=== PATIENT | female | born 1950 | race Caucasian/White ===

== ENCOUNTER 2021-03-02 13:30 | Outpatient (CLI) | payer OTHER, SELFPAY ==
--- NOTE | 2021-03-08 07:30 | WPDHOLTEREM ---
Holter/Event Monitor Holter/Event Monitor Date of procedure: 03/02/21 Holter/Event Procedure: 48 Hr Holter Monitor Indications: Syncope Conclusion: 1. 48 hour holter monitor on 03/02/21. 2. Predominant rhythm is sinus rhythm. HR range 52-121 bpm; average HR 75 bpm. 3. There are 33 premature supraventricular complexes and 4 supraventricular couplets. There are 4 episodes of atrial tachycardia, fastest at 169 bpm and longest is 4 beats. 4. There are 2 premature ventricular complexes. No ventricular tachycardia. 5. No sinoatrial or atrioventricular blocks. No significant pauses greater than 2 seconds. 6. No symptoms available for correlation.
== END 2021-03-02 13:31 | disposition home or self-care (01) ==
LOC: ANHCARD 13:32
PROVIDERS: PCP Family Medicine; Visit Provider Family Medicine
DX: R55 Syncope and collapse (principal)
CPT/HCPCS: 93225; 93226

== ENCOUNTER 2021-03-04 13:36 | Outpatient (CLI) | payer OTHER, SELFPAY ==
--- NOTE | ~2021-03-04 | US_ITS ---
EXAMINATION: US carotid duplex BI DATE: 03/04/2021 14:18 INDICATION: Syncope. TECHNIQUE: Grayscale, color Doppler, and pulsed Doppler images of the cervical carotid arteries were obtained. The degree of vessel stenosis is placed in one of the following categories: normal, <50%, 5 0-69%, >=70% but less than near-occlusion, near-occlusion, or total occlusion. Note that percent sten osis relative to normal distal artery lumen diameter is indirectly measured from velocity measurement s as described by Fernando, et al. Radiology 2003; 229:340-346. COMPARISON: None. FINDINGS: RIGHT: The right common carotid artery (CCA) peak systolic velocity (PSV) is 77 cm/s. The right internal car otid artery (ICA) PSV is 57 cm/s. The right ICA end-diastolic velocity (EDV) is 20 cm/s. The right IC A/CCA PSV ratio is 0.7. Grayscale and color Doppler images yield an estimate of <50% diameter reducti on from plaque in the ICA. There is antegrade flow in the right vertebral artery. LEFT: The left CCA PSV is 73 cm/s. The left ICA PSV is 95 cm/s. The left ICA EDV is 27 cm/s. The left ICA/C CA PSV ratio is 1.3. Grayscale and color Doppler images yield an estimate of <50% diameter reduction from plaque in the ICA. There is antegrade flow in the left vertebral artery. IMPRESSION: 1. <50% stenosis in the right internal carotid artery. 2. <50% stenosis in the left internal carotid artery. Reviewed, dictated and finalized at location A.
== END 2021-03-04 13:37 | disposition home or self-care (01) ==
PROVIDERS: PCP Family Medicine; Visit Provider Nurse Practitioner Family
DX: R55 Syncope and collapse (principal); I65.23 Occlusion and stenosis of bilateral carotid arteries
CPT/HCPCS: 93880

== ENCOUNTER 2021-04-04 14:15 | Outpatient (CLI) | payer OTHER, SELFPAY ==
--- NOTE | ~2021-04-04 | US_ITS ---
EXAMINATION: US aorta DATE: 04/04/2021 14:46 INDICATION: Hypertension, prior tobacco use TECHNIQUE: Grayscale, color Doppler, and pulsed Doppler images of the aorta and common iliac arteries were obtained. COMPARISON: None. FINDINGS: Maximum vascular dimensions are as follows: Proximal aorta: 2.8 cm Mid aorta: 2.1 cm Distal aorta: 1.7 cm Right common iliac artery: 1.5 cm Left common iliac artery: 1.6 cm There is no evidence of abdominal aortic aneurysm. IMPRESSION: 1. No sonographic evidence of abdominal aortic aneurysm. Reviewed, dictated and finalized at location A.
== END 2021-04-04 14:16 | disposition home or self-care (01) ==
PROVIDERS: PCP Family Medicine; Visit Provider Internal Medicine Cardiovascular Disease
DX: R09.89 Other specified symptoms and signs involving the circulatory and respiratory systems (principal)
CPT/HCPCS: 76775

== ENCOUNTER 2021-04-11 13:06 | Outpatient (CLI) | payer OTHER, SELFPAY ==
--- NOTE | ~2021-04-11 | XR_ITS ---
XR hip RT min 3V w AP pelvis DATE: 04/11/2021 13:34 INDICATION: Right chronic hip pain. No known injury. TECHNIQUE: AP pelvis. AP, lateral, crosstable lateral views of right hip COMPARISON: None FINDINGS: There is rotatory dextroscoliosis and multilevel degenerative disc disease of the lumbar sp ine. The pubic symphysis and sacroiliac joints are intact. No pelvic fracture or bone destruction is detected. There is asymmetric right hip joint space narrowing as well as spurring, consistent with right hip os teoarthritis. No fracture, dislocation or bone destruction of the right hip is detected. IMPRESSION: Asymmetric right hip osteoarthritis Rotatory dextroscoliosis and multilevel degenerative disc disease of the lumbar spine Reviewed, dictated and finalized at location A.
== END 2021-04-11 13:07 | disposition home or self-care (01) ==
PROVIDERS: PCP Family Medicine; Visit Provider Family Medicine
DX: M16.11 Unilateral primary osteoarthritis, right hip (principal)
CPT/HCPCS: 73502

== ENCOUNTER 2021-08-04 09:25 | Outpatient (CLI) | payer OTHER, SELFPAY ==
--- NOTE | ~2021-08-04 | XR_ITS ---
EXAMINATION: XR lg joint inject/asp w image DATE: 08/04/2021 10:18 INDICATION: Right hip arthritis. TECHNIQUE: A time-out was performed to verify the patient's name, date of , and procedure to b e performed. The procedure including the risks, benefits, and alternatives was discussed with the pat ient. Risks discussed included bleeding and infection. The patient understood the risks and agreed to proceed. The skin overlying the right hip joint was prepped and draped in usual sterile fashion. A nesthetic was administered with 1% lidocaine subcutaneously. A 22 G needle was advanced under fluoro scopic guidance into the joint. Injection of 1 mL of Omnipaque 240 confirmed intra-articular positio n of the needle. Subsequently, injectate consisting of 2 mL 0.5% bupivacaine and 2 mL 40 mg/mL Depo- Medrol was instilled. The needle was removed and the entry site was cleaned and dressed. There were no immediate complications. Fluoroscopy exposure time was 0.1 minutes. The total number of images wa s 1. FINDINGS: Real-time fluoroscopy demonstrates the needle in the right hip joint. Patient's pain prior to procedure:1/10. Patient's pain following the procedure: 0/10. IMPRESSION: 1. Fluoroscopy guided right hip joint injection of local anesthetic and steroid with decrease in the patient's presenting pain. Reviewed, dictated and finalized at location A. ERCIAL PEST CONTROL REPRESENTATIVE
== END 2021-08-04 09:26 | disposition home or self-care (01) ==
LOC: ANHIMG 09:30
PROVIDERS: PCP Family Medicine; Visit Provider Orthopaedic Surgery
DX: M16.11 Unilateral primary osteoarthritis, right hip (principal)
CPT/HCPCS: 20610; 77002; J1030; Q9966

== ENCOUNTER 2021-12-15 13:46 | Outpatient (CLI) | payer OTHER, SELFPAY ==
--- NOTE | 2021-12-15 14:58 | ECG_ITS ---
Measurements Intervals [place] Rate: 64 P: 57 KS: 182 QRS: -35 QRSD: 102 T: 32 QT: 417 QTc: 431 Interpretive Statements SINUS RHYTHM LEFT AXIS DEVIATION [QRS AXIS < -30] POSSIBLE RIGHT VENTRICULAR CONDUCTION DELAY [RSR (QR) IN V1/V2] NO PREVIOUS ECG AVAILABLE FOR COMPARISON Electronically Signed On 12-15-2021 20:40:13 CDT by Nava Mijares M.D.
[2021-12-15 15:42] LABS: Basophils Percent Auto 0.6 % (0.2-1.2); Eosinophils Absolute Auto 0.2 K/mm3 (0-0.3); Eosinophils Percent Auto 3.1 % (0-4.4); Hematocrit 42.5 % (37.0-47.0); Hemoglobin 14.4 g/dL (12.0-15.0); Immature Granulocyte Absolute 0.01 K/mm3 (0.00-0.031); Immature Granulocyte Percent A 0.2 % (0-0.5); Lymphocytes Absolute Auto 0.94 K/mm3 (0.9-3.2); Lymphocytes Percent Auto 19.2 % (18.3-44.2); Mean Corpuscular HGB Conc 33.9 g/dl (32-36); Mean Corpuscular Hemoglobin 33.3 pg (26-34); Mean Corpuscular Volume 98.4 fl (80-100); Mean Platelet Volume 8.8 fl (7.4-10.4); Monocytes Absolute Auto 0.6 K/mm3 (0.1-0.6); Monocytes Percent Auto 12.7 % (2.6-8.5); Neutrophils Absolute Auto 3.1 K/mm3 (1.3-6.7); Neutrophils Percent Auto 64.2 % (45.5-73.1); Platelet Count Result 220 k/mm3 (150-375); Red Blood Count 4.32 M/mm3 (4.2-5.4); Red Cell Distribution Width 13.2 % (11.5-14.5); White Blood Count 4.9 K/mm3 (4.5-10.0)
[2021-12-15 15:45] LABS: Appearance Urine Clear (Clear); Bilirubin Urine Negative (Negative); Color Urine Yellow (Yellow); Glucose Urine UA Negative (Negative); Ketones Urine Negative (Negative); Leukocyte Esterase Ur 1+ LEU/UL (Negative); Nitrate Urine Negative (Negative); Protein Urine Negative (Negative); Urobilinogen Urine 0.2 mg/dL (<2.0)
[2021-12-15 15:51] LABS: Albumin Level 4.9 g/dL (3.5-5.1); Anion Gap 6 mmol/L (8-16); Blood Urea Nitrogen 7 mg/dL (7-17); Calcium 9.9 mg/dL (8.4-10.2); Carbon Dioxide 32 mmol/L (22-30); Chloride 93 mmol/L (98-107); Estimated Glomerular Filt Rate > 60; Glucose 104 mg/dL (65-110); Potassium 3.3 mmol/L (3.4-5.0); Sodium 131 mmol/L (137-145)
[2021-12-15 15:51] LABS: Amorphous Sediment Urine Few; Bacteria Urine Trace /hpf; Mucus Urine Rare /lpf; Squamous Epithelial Cell Urine Rare /hpf (Few)
[2021-12-15 15:52] LABS: Add Urine Microscopic? YES; Blood Urine Trace-Intact (Negative)
[2021-12-15 15:55] LABS: Prothrombin Time 12.4 Seconds (11.1-14.7)
[2021-12-15 15:56] LABS: Hemoglobin A1C 4.5 % (<5.7)
[2021-12-15 15:57] LABS: Partial Thromboplastin Time 30.1 SECONDS (22.3-36.8)
== END 2021-12-15 13:47 | disposition home or self-care (01) ==
PROVIDERS: PCP Family Medicine; Visit Provider Orthopaedic Surgery
DX: M16.9 Osteoarthritis of hip, unspecified (principal); Z01.818 Encounter for other preprocedural examination; I45.9 Conduction disorder, unspecified
CPT/HCPCS: 36415; 80048; 81001; 82040; 83036; 85025; 85610; 85730; 86850; 86900; 86901; 87077; 87081; 87086; 87186; 93005

== ENCOUNTER 2021-12-19 09:06 | Outpatient (CLI) | payer OTHER, SELFPAY ==
[2021-12-19 10:26] LABS: Sodium 134 mmol/L (137-145)
[2021-12-19 11:19] LABS: Add Urine Microscopic? YES; Appearance Urine Slightly Cloudy (Clear); Bilirubin Urine 1+ (Negative); Blood Urine Trace-lysed (Negative); Color Urine Dark Yellow (Yellow); Glucose Urine UA Negative (Negative); Ketones Urine Negative (Negative); Leukocyte Esterase Ur Trace LEU/UL (Negative); Nitrate Urine Negative (Negative); Protein Urine 1+ mg/dL (Negative); pH Urine 7.5 (5.0-9.0)
[2021-12-19 11:24] LABS: Bacteria Urine Trace /hpf; Mucus Urine Rare /lpf; Squamous Epithelial Cell Urine Rare /hpf (Few)
== END 2021-12-19 09:07 | disposition home or self-care (01) ==
LOC: ANHSURGERY 09:09
PROVIDERS: Anesthesiology; PCP Family Medicine; Visit Provider Orthopaedic Surgery
DX: N39.0 Urinary tract infection, site not specified (principal); E87.1 Hypo-osmolality and hyponatremia
CPT/HCPCS: 36415; 81001; 84295; 87086

== ENCOUNTER 2022-01-02 10:06 | Outpatient (CLI) | payer OTHER, SELFPAY ==
[2022-01-02 11:05] LABS: Appearance Urine Clear (Clear); Bilirubin Urine Negative (Negative); Color Urine Yellow (Yellow); Glucose Urine UA Negative (Negative); Ketones Urine Negative (Negative); Leukocyte Esterase Ur Negative LEU/UL (Negative); Nitrate Urine Negative (Negative); Protein Urine Negative (Negative); Specific Grav Ur 1.015 (1.001-1.035); Urobilinogen Urine 0.2 mg/dL (<2.0)
[2022-01-02 11:11] LABS: Bacteria Urine Trace /hpf; WBC Urine 0-3 /hpf
[2022-01-02 11:13] LABS: Add Urine Microscopic? YES; Blood Urine Trace-Intact (Negative)
== END 2022-01-02 10:07 | disposition home or self-care (01) ==
LOC: ANHLAB 10:08
PROVIDERS: PCP Family Medicine; Visit Provider Orthopaedic Surgery
DX: N39.0 Urinary tract infection, site not specified (principal)
CPT/HCPCS: 81001

== ENCOUNTER 2022-01-17 00:15 | Day surgery (SDC) | payer OTHER, SELFPAY ==
[2021-12-15 14:01] VITALS: BMI 19.5
[2021-12-15 14:39] VITALS: BP 164/82; PULSE 68; RESP 18; TEMP 37.2; O2SAT 100
--- NOTE | 2021-12-15 14:40 | PC.NURSE ---
Report to the Outpatient Waiting Room, entrance under the green pavilion located off [facility], at time __0600 on date __12/20/21 . OR Time: ___729___. - You and your visitor will be asked a series of questions to screen for COVID 19 for your protection. - Only one visitor is allowed at this time. - The patient visitor is requested to leave or wait in car when not with patient. - A mask is required within the hospital. Patients may have clear liquids (water, carbonated beverages, clear teas, apple juice) until 3 hours prior to surgery with a maximum of 20 ounces. - No food from midnight until time of surgery - Infants may have breast milk until 4 hours before surgery, infant formula 6 hours prior to surgery. - Children will be allowed to drink immediately following surgery. If applicable, please bring a bottle or sippy cup to assist with drinking. Juice, water, soda, and popsicles are readily available. For infants on formula, please bring formula the day of surgery. Pacifiers are allowed. Take the following medications with a SIP of water the morning of surgery: ____NONE Medications to discontinue per physician __IBUPROFEN PER DR FLORES ALL VITAMINS AND SUPPLEMENTS 3 DAYS PRE OP Date to take last dose_12/16/21 Please no make-up, nail finnish, hairspray, perfume, deodorant, or body powder the day of surgery. No jewelry (including any body piercings) or valuables the day of surgery, leave them at home. Please take a shower or bath the night before, or the morning of, surgery with an antibacterial soap. Wear comfortable, loose fitting clothing. Children are encouraged to wear pajamas. - Jewelry must be removed prior to entering the operating room. Rings and piercings that are not removed may be cut off. - The hospital will not accept responsibility for valuables. - Please leave all valuables, including medications, at home the day of surgery. If you are going home after surgery, a licensed bulk delivery driver must drive you home. - NO public transportation without another adult. - We recommend that an adult stay with you for 24 hours following discharge. - We also recommend that you do not drive, make important decision, drink alcoholic beverages, or take any drugs that were not prescribed by your health care provider for at least 24 hours after your discharge time. For Pediatric surgeries, we recommend two adults accompany the child home (only one inside the building at this time). Follow any additional instructions given to you from your surgeon. If you or anyone in your household have experienced Covid symptoms in the past week, please notify your surgeon or the nurse liaison at the phone number below for possible testing. VERBAL AND WRITTEN nstructions given to _PATIENT and asked if any additional questions and then verbalized understanding. Patient advised to call surgeon office or pre surgery nurse liaison [phone] if any additional questions.
--- NOTE | 2022-01-04 15:25 | PC.NURSE ---
Report to the Outpatient Waiting Room, entrance under the green pavilion located off [facility], at time _0630 on date _01/17/22 . OR Time: _08 . - You and your visitor will be asked a series of questions to screen for COVID 19 for your protection. - Only one visitor is allowed at this time. - The patient visitor is requested to leave or wait in car when not with patient. - A mask is required within the hospital. Patients may have clear liquids (water, carbonated beverages, clear teas, apple juice) until 3 hours prior to surgery with a maximum of 20 ounces. - No food from midnight until time of surgery - Infants may have breast milk until 4 hours before surgery, infant formula 6 hours prior to surgery. - Children will be allowed to drink immediately following surgery. If applicable, please bring a bottle or sippy cup to assist with drinking. Juice, water, soda, and popsicles are readily available. For infants on formula, please bring formula the day of surgery. Pacifiers are allowed. Take the following medications with a SIP of water the morning of surgery: ____NONE Medications to discontinue per physician __PT STATES IBUPROFEN 7 DAYS PRE OP PER DR FLORES AND ALL VITAMINS/SUPPLEMENTS 3 DAYS PRE OP Date to take last dose_IBUPROFEN 01/09/22 VIT/SUPP 01/13/22 Please no make-up, nail martiniquais, hairspray, perfume, deodorant, or body powder the day of surgery. No jewelry (including any body piercings) or valuables the day of surgery, leave them at home. Please take a shower or bath the night before, or the morning of, surgery with an antibacterial soap. Wear comfortable, loose fitting clothing. Children are encouraged to wear pajamas. - Jewelry must be removed prior to entering the operating room. Rings and piercings that are not removed may be cut off. - The hospital will not accept responsibility for valuables. - Please leave all valuables, including medications, at home the day of surgery. If you are going home after surgery, a licensed local flatbed driver must drive you home. - NO public transportation without another adult. - We recommend that an adult stay with you for 24 hours following discharge. - We also recommend that you do not drive, make important decision, drink alcoholic beverages, or take any drugs that were not prescribed by your health care provider for at least 24 hours after your discharge time. For Pediatric surgeries, we recommend two adults accompany the child home (only one inside the building at this time). Follow any additional instructions given to you from your surgeon. If you or anyone in your household have experienced Covid symptoms in the past week, please notify your surgeon or the nurse liaison at the phone number below for possible testing. Telephone instructions given to _PATIENT and asked if any additional questions and then verbalized understanding. Patient advised to call surgeon office or pre surgery nurse liaison [phone] if any additional questions.
--- NOTE | 2022-01-04 15:31 | PC.NURSE ---
PT STATES NO CHANGE IN HEALTH HX SINCE LAST INTERVIEW ON 12/15/21
--- NOTE | 2022-01-16 15:10 | WPDANESEPPF ---
Anes - Initial Pre Proc Eval Procedure: Operation Date: 01/17/22 08:30 Proposed Procedures p Right Total Hip Arthroplasty - Ron Goddard MD Date/Time: 01/16/22 15:10 Surgeon: Ron Goddard MD Pre Op Diagnosis: right hip djd Patient Data Age: 71 Gender: F Height: 1.63 m Weight: 51.8 kg Last Vital Signs Temp 37.2 C 12/15/21 14:39 Pulse 68 12/15/21 14:39 Resp 18 12/15/21 14:39 BP 164/82 H 12/15/21 14:39 Pulse Ox 100 12/15/21 14:39 O2 Del Method Room Air 12/15/21 14:39 Allergies Allergy/AdvReac Type Severity Reaction Status Date / Time lisinopril AdvReac angioedema, Verified 01/17/22 07:46 cough Home Medications Medication Instructions Recorded Confirmed Type losartan 50 mg tablet 50 mg PO DAILY #90 tabs 09/19/21 01/17/22 Rx calcium carbonate 600 mg-vitamin 1 tablet PO DAILY 12/15/21 01/17/22 History D3 10 mcg (400 unit) tablet (Calcium 600 + D(3)) ibuprofen 400 mg tablet 400 mg PO Q6H PRN Pain 12/15/21 01/17/22 History magnesium 250 mg tablet 250 mg PO DAILY 12/15/21 01/17/22 History multivit with 1 tablet PO DAILY 12/15/21 01/17/22 History qvjnkwlu-ekhj-IF-lutein 8 mg iron-400 mcg-300 mcg tablet (Centrum Silver Women) turmeric 400 mg capsule 400 mg PO DAILY 12/15/21 01/17/22 History oxycodone-acetaminophen 5 mg-325 1 tablet PO Q6H PRN pain #50 tabs 01/17/22 Rx mg tablet (Percocet) Patient hx anesthesia problems: none Family hx anesthesia problems: none Results Review: All pre-operative results and documents have been reviewed as part of the pre-operative evaluation. [facility] Past Medical History Medical History Benign essential hypertension Dyslipidemia Essential (primary) hypertension Osteopenia Rosacea Surgical History Surgical History History of appendectomy 1971 History of ovarian cystectomy 1971- left Family History Family History Mother Alzheimer disease Other Colon polyp Hypertension Social History Social History Smoking packs per day: 1 Smoking cigarettes per day: 20.0 Years smoked: 36 Smoking pack-years: 36.00 Smoking status: Former smoker Additional smoking assessment comments: VAPING NON NICOTINE. STATES LASTED VAPE 12/05/21. DENIES ANY FORM OF TOBACCO Alcohol intake: current Drinks per week: 7 Alcohol use details: WINE Substance use: never Substance use type: does not use Living arrangements: with family Gender identity (if verbalized by the patient): Female Spiritual care concerns: No Anes - Eval Final PreProcedure Day of Procedure 01/16/22 15:10 Patient weight: thin Heart: regular rate and rhythm Lungs: clear to auscultation Airway: Mallampati scale class II Neurological: alert and oriented Last oral intake: >/= 8 hours ASA classification: III Emergent: no Anesthetic plan: proceed Anesthesia type and monitoring: general ETT and standard monitoring Results Review: All pre-operative results and documents have been reviewed as part of the pre-operative evaluation. Informed Consent: The patient's anesthetic plan and its attendant risks and benefits were discussed with the patient/family/POA. Questions were solicited and answers provided to the satisfaction of the patient/family/POA.
[2022-01-17] VITALS (15 sets, daily range): BP systolic 105–166; BP diastolic 65–92; PULSE 62–92; RESP 16–22; TEMP 35.9–36.9; O2SAT 95–100
--- NOTE | ~2022-01-17 | XR_ITS ---
EXAMINATION: XR hip RT min 2V DATE: 01/17/2022 11:25 INDICATION: Postoperative evaluation following right total hip arthroplasty TECHNIQUE: Anteroposterior and lateral views of the right hip were obtained. COMPARISON: 11/24/2021 FINDINGS: Interval placement of a noncemented right total hip arthroplasty which appears well seated in near an atomic alignment. Expected subcutaneous gas in the postoperative bed. No fractures identified. IMPRESSION: 1. Right total hip arthroplasty, negative for postoperative purposes. Reviewed, dictated and finalized at location B.
[2022-01-17] MEDS: ACETAMINOPHEN 500 MG TABLET 1000 MG PO (07:18)
[2022-01-17] MEDS: TRANEXAMIC ACID 1,000MG/ISO100 1,000 MG/100 ML BAG 200 MG IVPB (07:18)
[2022-01-17] MEDS: LACTATED RINGERS 1,000 ML 30 ML IV CONT ×2 (07:18→11:05)
--- NOTE | 2022-01-17 08:21 | WPDHPUPDATE1 ---
History and Physical Update Update Date/Time: 01/17/22 08:21 History and Physical has been reviewed, including an updated exam of the patient. There are NO changes in the patient's condition. Risks, benefits, and alternatives have been discussed and questions answered. Patient agrees to proceed with procedure.
[2022-01-17] MEDS: ceFAZolin 2 GM/D5W 50 ML 2 GM/50 ML BAG IVPB ×2 (08:44→16:26)
[2022-01-17] MEDS: ONDANSETRON INJ 4 MG/2 ML VIAL IV PUSH (11:25)
--- NOTE | 2022-01-17 11:28 | W.PM.PROC2 ---
Procedure Note - Detailed Date of Procedure 01/17/22 Pre-op Diagnosis right hip djd Post-op Diagnosis Same Procedure Performed R ERICKSON Surgeon Ron Goddard MD Anesthesia General Description of Procedure THE PATIENT WAS TAKEN TO THE OPERATING ROOM IN STABLE CONDITION AND WAS PLACED IN THE LATERAL DECUBITUS AND THE RIGHT LOWER EXTREMITY WAS PREPPED AND DRAPED IN THE STERILE FASHION. INCISION WAS MADE IN THE POSTERIOR LATERAL SIDE OF THE HIP, DOWN TO THE FASCIA LAYER. THE FASCIA WAS INCISED. THE HIP WAS EXPOSED. THE SHORT EXTERNAL ROTATORS WERE EXPOSED. THE SCIATIC NERVE WAS IDENTIFIED. INCISION WAS MADE THROUGH THE SHORT EXTERNAL ROTATORS AND THE CAPSULE OF THE HIP JOINT. THE HIP WAS DISLOCATED. AN OSTEOTOMY WAS MADE TO THE FEMORAL NECK ABOUT 1 CM PROXIMAL TO THE LESSER TROCHANTER. THE ACETABULUM WAS EXPOSED. THERE WAS SEVERE DJD SEEN. BEGINNING WITH A 44 REAMER THE ACETABULUM WAS REAMED TO 49 MM. A 49 MM TRIAL WAS PLACED IN 35 DEG OF ABDUCTION AND ANTEVERSION WAS IN ALIGNMENT WITH THE TRANS ACETABULAR LIGAMENT. THE FIT WAS EXCELLENT. THE TRIAL WAS REMOVED. A 50 MM BIOMET G7 COMPONENT WAS THEN TAPPED IN TO PLACE IN 35 DEG OF ABDUCTION AND ANTEVERSION IN ALIGNMENT WITH THE TRANSVERSE ACETABULAR LIGAMENT. THE FIT WAS EXCELLENT. THE ACETABULAR LINER WAS PLACED AND CHECKED FOR STABILITY. NEXT THE FEMUR WAS PREPARED WITH INITIAL CANAL FINDER THEN SEQUENTIAL BROACHING WITH A TAPERLOC HIP SYSTEM, UNTIL A 11 BROACH FIT WELL IN 15 OF ANTEVERSION. A 0 STANDARD OFFSET NECK WITH 36 MM HEAD TRIAL WAS PLACED. THE SHUCK TEST WAS EXCELLENT AND THE STABILITY IN FLEXION AND ROTATION WAS EXCELLENT. LEG LENGTHS WERE GROSSLY EQUAL. TRIALS WERE REMOVED. A BIOMET TAPERLOC 11 STEM WAS PLACED WITH A STANDARD OFFSET NECK. THE FIT WAS EXCELLENT IN 15 DEG OF ANTEVERSION. A 0 CERAMIC 36 MM FEMORAL HEAD WAS PLACED. THE HIP WAS TRIALED AND THE STABILITY WAS EXCELLENT WERE THE LEG LENGTHS AND THE SHUCK TEST. THE WOUND WAS IRRIGATED WITH STERILE BETADINE AND WATER FOR 3 MIN. THEN WASHED AGAIN. THE SCIATIC NERVE WAS IDENTIFIED AGAIN. THE CAPSULE AND THE EXTERNAL ROTATORS WERE APPROXIMATED WITH NUMBER 1 VICRYL. THE FASCIA WITH No 2 QUIL AND THE SUB CUTANEOUS LAYER WITH 2-0 ABSORBABLE SUTURE AND A RUNNING 3-0 SUBCUTICULAR STITCH FOR THE SKIN. DERMABOND WAS PLACED AND STERILE DRESSING WAS APPLIED. PATIENT WAS PLACED BACK ON TO THE SUPINE POSITION AND WAS EXTUBATED Estimated Blood Loss -150.0 Complications No immediate complications Condition Stable Disposition PACU
[2022-01-17] MEDS: diphenhydrAMINE HCl INJ 50 MG/ML VIAL 12.5 MG IV PUSH (11:52)
[2022-01-17] MEDS: DEXTROSE 5%/0.45% SOD CHL 1,000 ML 80 ML IV CONT (13:25)
[2022-01-17] MEDS: hydrOXYzine HCL 25 MG TABLET 50 MG PO (13:25)
[2022-01-17] MEDS: HYDROcodone/acetaminophen (*CRX) 7.5-325 MG TABLET PO ×2 (13:30→20:13)
[2022-01-17] MEDS: ARTIFICIAL TEARS OPHTH SOLN 15 ML BOTTLE 1 DROP EACH EYE (13:31)
[2022-01-17] MEDS: KETOROLAC 15 MG/ML VIAL (*BKC) IV PUSH ×2 (14:55→17:14)
[2022-01-17] MEDS: SENNA/DOCUSATE SODIUM TABLET 2 TAB PO (16:27)
[2022-01-18] MEDS: KETOROLAC 15 MG/ML VIAL (*BKC) IV PUSH ×3 (00:04→11:35)
[2022-01-18] MEDS: ceFAZolin 2 GM/D5W 50 ML 2 GM/50 ML BAG IVPB ×2 (00:05→08:26)
[2022-01-18 02:08] VITALS: BP 126/58; PULSE 71; RESP 21; TEMP 36.9; O2SAT 100
[2022-01-18 05:28] VITALS: BP 129/60; PULSE 80; RESP 20; TEMP 36.6; O2SAT 98
[2022-01-18 05:46] LABS: Basophils Percent Auto 0.1 % (0.2-1.2); Eosinophils Percent Auto 0.1 % (0-4.4); Hematocrit 30.2 % (37.0-47.0); Hemoglobin 10.4 g/dL (12.0-15.0); Immature Granulocyte Absolute 0.04 K/mm3 (0.00-0.031); Immature Granulocyte Percent A 0.4 % (0-0.5); Lymphocytes Absolute Auto 1.57 K/mm3 (0.9-3.2); Lymphocytes Percent Auto 14.9 % (18.3-44.2); Mean Corpuscular HGB Conc 34.4 g/dl (32-36); Mean Corpuscular Hemoglobin 32.8 pg (26-34); Mean Corpuscular Volume 95.3 fl (80-100); Mean Platelet Volume 9.3 fl (7.4-10.4); Monocytes Absolute Auto 1.4 K/mm3 (0.1-0.6); Neutrophils Absolute Auto 7.5 K/mm3 (1.3-6.7); Neutrophils Percent Auto 71.5 % (45.5-73.1); Platelet Count Result 175 k/mm3 (150-375); Red Blood Count 3.17 M/mm3 (4.2-5.4); Red Cell Distribution Width 12.4 % (11.5-14.5); White Blood Count 10.5 K/mm3 (4.5-10.0)
[2022-01-18 05:53] LABS: Anion Gap 4 mmol/L (8-16); Blood Urea Nitrogen 9 mg/dL (7-17); Calcium 8.7 mg/dL (8.4-10.2); Carbon Dioxide 31 mmol/L (22-30); Chloride 100 mmol/L (98-107); Estimated CRCL calculation 70 ml/min; Estimated Glomerular Filt Rate > 60; Glucose 115 mg/dL (65-110); Potassium 3.3 mmol/L (3.4-5.0); Sodium 135 mmol/L (137-145)
--- NOTE | 2022-01-18 07:28 | PM.PNORT ---
Progress Note: A&P Assessment and Plan (1) History of hip replacement, total: Code(s): Z96.649 - Presence of unspecified artificial hip joint Status: Acute Plan POD 1 DOING WELL. OK TO DC HOME AFTER PT TODAY. SHE WILL F/U IN 3 WEEKS. Subjective Subjective Date/Time Seen: 01/18/22 07:28 POD 1 DOING WELL. NO CALF PAIN Exam Narrative: VSS AFEBRILE DRESSING DRY NV INTACT NEG HOMANS SIGN CALF SOFT NON TENDER Extrem: Other: VSS AFEBRILE DRESSING DRY NV INTACT NEG HOMANS SIGN CALF SOFT NON TENDER Objective Data Vital Signs Vital Signs: Vital Signs - 24 hr 01/17/22 07:42 01/17/22 11:05 01/17/22 11:15 Temperature 35.9 C L Pulse Rate 64 92 69 Respiratory Rate 16 20 Blood Pressure 157/83 H 153/70 H 142/92 H Pulse Oximetry 100 100 Oxygen Delivery Simple Face Mask Simple Face Mask Oxygen Flow Rate 10 10 01/17/22 11:30 01/17/22 11:45 01/17/22 12:00 Temperature Pulse Rate 68 69 70 Respiratory Rate 22 H 21 H 20 Blood Pressure 146/71 H 139/81 163/74 H Pulse Oximetry 100 100 100 Oxygen Delivery Room Air Room Air Room Air Oxygen Flow Rate 01/17/22 12:15 01/17/22 12:40 01/17/22 12:55 Temperature 36.8 C 36.7 C Pulse Rate 72 64 71 Respiratory Rate 20 20 20 Blood Pressure 105/87 149/72 H 133/78 Pulse Oximetry 100 99 95 Oxygen Delivery Room Air Oxygen Flow Rate 01/17/22 13:25 01/17/22 13:00 01/17/22 13:35 Temperature 36.7 C Pulse Rate 72 Respiratory Rate 20 Blood Pressure 123/68 Pulse Oximetry 99 Oxygen Delivery Room Air Room Air Oxygen Flow Rate 01/17/22 14:02 01/17/22 14:25 01/17/22 18:08 Temperature 36.9 C 36.8 C Pulse Rate 65 62 Respiratory Rate 18 18 Blood Pressure 112/65 115/68 Pulse Oximetry 100 100 Oxygen Delivery Room Air Oxygen Flow Rate 01/17/22 20:00 01/17/22 22:08 01/18/22 02:08 Temperature 36.6 C 36.9 C Pulse Rate 62 74 71 Respiratory Rate 18 21 H 21 H Blood Pressure 138/72 126/58 L Pulse Oximetry 100 100 100 Oxygen Delivery Room Air Oxygen Flow Rate 01/18/22 05:28 Temperature 36.6 C Pulse Rate 80 Respiratory Rate 20 Blood Pressure 129/60 Pulse Oximetry 98 Oxygen Delivery Oxygen Flow Rate Intake/Output Intake/Output: Intake & Output 01/15/22 01/16/22 01/17/22 01/18/22 23:59 23:59 23:59 23:59 Intake Total 1590 850 Output Total 550 1100 Balance 1040 -250 Meds/Results Medications: Active Medications Generic Name Dose Route Start Last Admin Trade Name Freq PRN Reason Stop Dose Admin Acetaminophen 650 mg 01/17/22 12:23 Acetaminophen 325 Mg Tablet PO Q6H PRN Mild Pain (1-3) or Fever Hydrocodone Bitart/Acetaminophen 0 tab 01/17/22 12:23 01/17/22 20:13 Hydrocodone/Acetaminophen (*Crx) 7.5-325 Mg Tablet PO 1 tab Q3H PRN Administration Pain Rated 4-6 Al Hydrox/Mg Hydrox/Simethicone 30 ml 01/17/22 12:23 Mag Hydrox/Al Hydrox/Simeth 30 Ml Udc PO Q6H PRN Indigestion Artificial Tears 1 drop 01/17/22 12:40 01/17/22 13:31 Artificial Tears Ophth Soln 15 Ml Bottle EACH EYE 1 drop QID PRN Administration Dry Eye(s) Aspirin 650 mg 01/18/22 09:00 Aspirin 325 Mg Enteric Tablet PO DAILY [facility] Calcium Carbonate 500 mg 01/18/22 09:00 Calcium/Vitamin D 500 Mg Tablet PO 02/17/22 08:59 DAILY [facility] Diazepam 5 mg 01/17/22 12:23 Diazepam (*Crx) 5 Mg Tablet PO Q6H PRN Anxiety/Muscle Spasm Hydroxyzine HCl 50 mg 01/17/22 12:23 01/17/22 13:25 Hydroxyzine Hcl 25 Mg Tablet PO 50 mg Q4H PRN Administration Itching Cefazolin Sodium 2 gm in 50 mls @ 100 mls/hr 01/17/22 17:00 01/18/22 00:35 Ancef 2 Gm/D5w 50 Ml IVPB 01/18/22 09:29 Infused Q8H [facility] Infusion Ketorolac Tromethamine 15 mg 01/17/22 12:23 01/18/22 05:24 Ketorolac 15 Mg/Ml Vial (*Bkc) IV PUSH 01/18/22 12:01 15 mg Q6HR YAKELIN Administration Losartan Potassium 50 mg 01/18/22 09:00 Losartan Potassium 50 Mg Table
[2022-01-18] MEDS: polyethylene glycoL 3350 17 GM POWD.PACK PO (08:25)
[2022-01-18] MEDS: MAGNESIUM OXIDE 200 MG TABLET PO (08:25)
[2022-01-18] MEDS: THERAPEUTIC MULTIVITAMINS/MINERALS TAB (*BKC) 1 TABLET PO (08:25)
[2022-01-18] MEDS: SENNA/DOCUSATE SODIUM TABLET 2 TAB PO (08:25)
[2022-01-18] MEDS: ASPIRIN 325 MG ENTERIC TABLET 650 MG PO (08:26)
--- NOTE | 2022-01-18 09:06 | WPDANESPN ---
Anes - Prog Note Post-Op Date/Time: 01/18/22 09:06 Vital Signs: Last Vital Signs Temp 36.6 C 01/18/22 05:28 Pulse 80 01/18/22 05:28 Resp 20 01/18/22 05:28 BP 129/60 01/18/22 05:28 Pulse Ox 98 01/18/22 05:28 O2 Del Method Room Air 01/18/22 07:27 O2 Flow Rate 10 01/17/22 11:15 Pain Score (VAS): 0 I/O: Intake & Output 01/17/22 01/18/22 01/18/22 23:59 07:59 15:59 Intake Total 1040 850 480 Output Total 550 1100 Balance 490 -250 480 Laboratory Tests 01/18/22 05:08 01/18/22 05:08 01/18/22 01/18/22 05:08 05:08 WBC 10.5 H RBC 3.17 L Hgb 10.4 L D Hct 30.2 L MCV 95.3 MCH 32.8 MCHC 34.4 RDW 12.4 Plt Count 175 MPV 9.3 Immature Gran % (Auto) 0.4 Neut % (Auto) 71.5 Lymph % (Auto) 14.9 L [place] % (Auto) 13.0 H Eos % (Auto) 0.1 Baso % (Auto) 0.1 L Lymph # (Auto) 1.57 [place] # (Auto) 1.4 H Eos # (Auto) 0.0 Baso # (Auto) 0.0 Abs Immat Gran (auto) 0.04 H Absolute Neuts (auto) 7.5 H Absolute Nucleated RBC 0.0 Nucleated RBC % 0.0 Sodium 135 L Potassium 3.3 L Chloride 100 Carbon Dioxide 31 H Anion Gap 4 L BUN 9 Creatinine 0.50 L Estim Creat Clear Calc 70 Estimated GFR > 60 Glucose 115 H Calcium 8.7 Patient Feedback: Patient satisfied with anesthetic care.
[2022-01-18 10:08] VITALS: BP 121/61; PULSE 83; RESP 18; TEMP 37.1; O2SAT 99
--- NOTE | 2022-01-18 12:27 | PM.DS ---
DS: Admitting Diagnosis Discharge Date 01/18/22 Admitting Diagnosis RIGHT HIP DJD DS: Discharge Diagnosis Discharge Diagnosis (1) History of hip replacement, total: Code(s): Z96.649 - Presence of unspecified artificial hip joint Status: Acute DS: Summary Hospital Course Reason for hospitalization: R [facility]ICKSON Hospital Course: PATIENT WAS ADMITTED S/P RIGHT TOTAL HIP ARTHROPLASTY FOR POSTOPERATIVE MEDICAL MANAGEMENT, PAIN CONTROL AND MOBILIZATION WITH PHYSICAL AND OCCUPATIONAL THERAPY. THE PATIENT PROGRESSED WELL WITH PT/OT. LABS AND VITALS REMAINED STABLE AND PAIN WELL CONTROLLED. THE PATIENT HAS BEEN CLEARED TO BE DISCHARGED HOME. FOLLOW UP APPOINTMENT SCHEDULED. DISCHARGE INSTRUCTIONS DISCUSSED AT LENGTH WITH THE PATIENT. MEDICATIONS REVIEWED. Status at Discharge Cognitive/behavioral status at discharge: STABLE Time Spent with Patient Time attestation: Total time spent providing and/or coordinating discharge services: 15 MIN DS: Data Data Completed and Pending Labs on day of discharge: Labs from last 24 hours 01/18/22 01/18/22 05:08 05:08 WBC 10.5 H RBC 3.17 L Hgb 10.4 L D Hct 30.2 L MCV 95.3 MCH 32.8 MCHC 34.4 RDW 12.4 Plt Count 175 MPV 9.3 Immature Gran % (Auto) 0.4 Neut % (Auto) 71.5 Lymph % (Auto) 14.9 L [place] % (Auto) 13.0 H Eos % (Auto) 0.1 Baso % (Auto) 0.1 L Lymph # (Auto) 1.57 [place] # (Auto) 1.4 H Eos # (Auto) 0.0 Baso # (Auto) 0.0 Abs Immat Gran (auto) 0.04 H Absolute Neuts (auto) 7.5 H Absolute Nucleated RBC 0.0 Nucleated RBC % 0.0 Sodium 135 L Potassium 3.3 L Chloride 100 Carbon Dioxide 31 H Anion Gap 4 L BUN 9 Creatinine 0.50 L Estim Creat Clear Calc 70 Estimated GFR > 60 Glucose 115 H Calcium 8.7 Discharge Plan Discharge Patient Disposition: Home Health Service Discharge Instructions: LISA GODDARD M.D. [facility] [address] [place] [address] POST OPERATIVE DISCHARGE INSTRUCTIONS FOLLOWING TOTAL HIP REPLACEMENT SURGERY ? Your dressing will be changed prior to your discharge. You will be sent home with one additional dressing to be changed on post op day 7 by the home health RN. You may remove the dressing on post op day 14. Your incision was closed with dermabond, allow the dermabond to fall off naturally once your dressing is removed. Do not pull at the dermabond or disrupt incision healing. ? You may shower with your dressing but do not submerge in a bath tub. ? Do not drive or operate machinery until you are released by Dr. Goddard. ? Do not walk without a walker for any reason until you are released by Dr. Goddard. ? Continue to apply ice to the hip intermittently for additional pain relief. Protect your skin with a towel or pillow case. ? Unless otherwise instructed by Dr. Goddard you me be weight bearing as tolerated with your walker. ? Continue to follow strict total hip replacement precautions. ? Your first post op appointment was sent to you via mail preoperatively. If you have any questions or are unable to make your appointment, please contact our office for scheduling questions. ? Your medications have been sent to your pharmacy. You have been sent home with pain medication. We have also sent you with a stool softener as narcotics can cause constipation. Please keep this in mind during your postoperative recovery. If you are not experiencing regular bowel movements, please contact our office for further instruction. ? Please contact our office with any questions regarding your hip at [phone]. take 2 aspirin (325 mg) per day for 3 weeks for blood clot prevention [facility] was arranged for RN, PT/OT evaluations and treatment. [facility] contact number is [phone]. Your first visit is anticipated to be , 01/19/22. [facility] will call to confirm t
== END 2022-01-18 12:55 | disposition home health service (06) ==
LOC: ANHSURGERY 12:00 → ANH2MED 12:26
PROVIDERS: PCP Family Medicine; Visit Provider Orthopaedic Surgery
PROC: (CPT 27130; principal; 2022-01-17 08:30)
DX: M16.11 Unilateral primary osteoarthritis, right hip (principal); I10 Essential (primary) hypertension; E78.5 Hyperlipidemia, unspecified; M85.80 Other specified disorders of bone density and structure, unspecified site; Z87.891 Personal history of nicotine dependence
CPT/HCPCS: 27130; 36415; 73502; 80048; 85025; 86850; 86900; 86901; 97110; 97116; 97161; 97165; 97530; 97535; A9270; C1713; C1776; J0171; J0690; J1100; J1200; J1885; J2270; J2405; J2704; J2795; J3010; J7120

== ENCOUNTER 2022-09-12 16:40 | Outpatient (CLI) | payer OTHER, SELFPAY ==
--- NOTE | ~2022-09-12 | MM_ITS ---
EXAMINATION: MM screening [facility] BI w prashanth HISTORY: Screening mammogram TECHNIQUE: Craniocaudal and mediolateral oblique 3-D tomosynthesis images were obtained and synthetic 2-D images were generated. CAD analysis was submitted and interpreted. COMPARISON: 04/18/2018, 04/28/2015 BREAST PARENCHYMAL COMPOSITION: There are scattered areas of fibroglandular density. FINDINGS: No suspicious mass, calcification, or architectural distortion are identified in either viral ast to suggest malignancy. There has been no suspicious interval change. IMPRESSION: 1. No mammographic evidence of malignancy. 2. Recommend routine screening mammography in one year. BI-RADS Category 1: Negative Reviewed, dictated and finalized at location A. ORATE DEVELOPMENT INTERN
--- NOTE | ~2022-09-12 | DEXA_ITS ---
Bone Density Report Name: JAKE ARVIZU Age: 71 Sex: Female Ethnicity: White Date of : 1950 Indication: postmenopausal; screening for osteoporosis; secondary osteoporosis; Referring Provider: ROMAN ROBBINS Study: Bone densitometry was performed. Exam Date: September 12, 2022 Accession number: [id number] Bone Density: Region BMD T-score Z-score Classification AP Spine(L1, L2) 0.846 -1.2 0.9 Osteopenia Femoral Neck (Left) 0.619 -2.1 -0.2 Osteopenia Total Hip (Left) 0.664 -2.3 -0.7 Osteopenia World Health Organization criteria for BMD impression classify patients as: Normal (T-score at or above -1.0), Osteopenia (T-score between -1.0 and -2.5), or Osteoporosis (T-score at or below -2.5). 10-year Fracture Risk(1): Major Osteoporotic Fracture 11% Hip Fracture 2.5% Reported Risk Factors: [place] (), Neck BMD=0.619, BMI=19.6, secondary osteoporosis (1) FRAX(R) Version 3.08. Fracture probability calculated for an untreated patient. Fracture probability may be lower if the patient has received treatment. Clinical Information Provided by Patient: Has secondary osteoporosis Has used the following medications: HRT (i.e. estrogen/hormone therapy), Vitamin D, Calcium Patient maximum height was 64 Menopause Age: 44 Onset of menses at age 14 Number of children 2 Impression: The patient has low bone mass, based on the Left Total Hip T-score. The patient has an estimated ten-year risk of hip fracture of 2.5% and an estimated ten-year risk of major fracture of 11%, based on the WHO FRAX algorithm. Discussion: BONE DENSITY IS LOW AT ONE OR MORE SKELETAL SITES. This patient's lowest T-score is low at one or more skeletal sites. It meets the World Health Organization's (WHO) criteria for ?low bone mass? (T-score between -1.0 and -2.5). The patient's 10-year risk of fracture as calculated by FRAX is less than the threshold where pharmacological therapy is recommended by the National Osteoporosis Foundation (NOF). However, all treatment decisions require clinical judgment and consideration of individual patient factors, including patient preferences, comorbidities, previous drug use, risk factors not captured in the FRAX model (e.g., frailty, falls, vitamin D deficiency, increased bone turnover, interval significant decline in bone density) and possible under or overestimation of fracture risk by FRAX. The patient should follow a healthful lifestyle (good nutrition with adequate calcium and vitamin D, and appropriate weight-bearing exercise). Follow-Up: Consider repeating this study in 2 to 3 years to reassess this patient's status, or sooner if there is some new clinical indication. Reported by: [facility] on 09/12/2022 5:20:00 PM. Reviewed, dictated and finalized at location A. MT
== END 2022-09-12 16:41 | disposition home or self-care (01) ==
PROVIDERS: PCP Family Medicine; Visit Provider Family Medicine
DX: Z12.31 Encounter for screening mammogram for malignant neoplasm of breast (principal); Z78.0 Asymptomatic menopausal state; M85.88 Other specified disorders of bone density and structure, other site; M85.852 Other specified disorders of bone density and structure, left thigh
CPT/HCPCS: 77063; 77067; 77080

== ENCOUNTER 2023-06-20 14:35 | Outpatient (CLI) | payer OTHER, SELFPAY ==
--- NOTE | ~2023-06-20 | CT_ITS ---
CT Scan of the Chest without Contrast: Clinical Indication: Lung cancer screening Technique: Contiguous sections were acquired throughout the chest without intravenous contrast. Dose reduction technique was used on this scan by utilizing automated exposure control and iterative recon struction technique. The dose-length product (DLP) was 64.40 mGy-cm. Findings: There is no evidence of any significant mediastinal, hilar or axillary lymphadenopathy. The mediastin al soft tissues appear normal. There is no evidence of pleural or pericardial effusion. The lungs are clear, aside from calcified left lower lobe granuloma. Images through the upper abdomen reveal no abnormalities. Impression: Lung RADS 2: Benign appearance. 12 month follow-up screening CT advised. Reviewed, dictated and finalized at location . PATIAL ENGINEER Impression: Lung RADS 2: Benign appearance. 12 month follow-up screening CT advised.
== END 2023-06-20 14:36 | disposition home or self-care (01) ==
LOC: ANHIMG 14:39
PROVIDERS: PCP Family Medicine; Visit Provider Family Medicine
DX: Z12.2 Encounter for screening for malignant neoplasm of respiratory organs (principal); Z87.891 Personal history of nicotine dependence
CPT/HCPCS: 71271

== ENCOUNTER 2023-11-13 15:15 | Outpatient (CLI) | payer OTHER, SELFPAY ==
--- NOTE | ~2023-11-13 | MM_ITS ---
EXAMINATION: MM screening [facility] BI w prashanth HISTORY: Screening mammogram TECHNIQUE: Craniocaudal, rotated lateral craniocaudal and mediolateral oblique 3-D tomosynthesis imag es were obtained and synthetic 2-D images were generated. CAD analysis was submitted and interpreted. COMPARISON: 09/12/2022, 04/18/2018 bilateral screening mammogram examinations BREAST PARENCHYMAL COMPOSITION: The breasts are heterogeneously dense, which may obscure small masses . FINDINGS: There is no evidence of suspicious mass, calcification, or architectural distortion to sugg est malignancy in either breast. There has been no suspicious interval change. IMPRESSION: 1. No mammographic evidence of malignancy. 2. Recommend routine screening mammography in one year. BI-RADS Category 1: Negative Reviewed, dictated and finalized at location B.
== END 2023-11-13 15:16 | disposition home or self-care (01) ==
PROVIDERS: PCP Family Medicine; Visit Provider Family Medicine
DX: Z12.31 Encounter for screening mammogram for malignant neoplasm of breast (principal)
CPT/HCPCS: 77063; 77067

== ENCOUNTER 2025-03-02 15:01 | Outpatient (CLI) | payer OTHER, SELFPAY ==
--- NOTE | ~2025-03-02 | DEXA_ITS ---
Bone Density Report Name: JAKE ARVIZU Age: 74 Sex: Female Ethnicity: White Date of : 1950 Indication: osteopenia; secondary osteoporosis; Referring Provider: ROMAN ROBBINS Study: Bone densitometry was performed. Exam Date: March 02, 2025 Accession number: [id number] Bone Density: Region BMD T-score Z-score Classification AP Spine(L1-L4) 1.050 0.0 2.4 Normal Femoral Neck (Left) 0.640 -1.9 0.2 Osteopenia Total Hip (Left) 0.670 -2.2 -0.5 Osteopenia World Health Organization criteria for BMD impression classify patients as: Normal (T-score at or above -1.0), Osteopenia (T-score between -1.0 and -2.5), or Osteoporosis (T-score at or below -2.5). 10-year Fracture Risk(1): Major Osteoporotic Fracture 10% Hip Fracture 2.5% Reported Risk Factors: [place] (), Neck BMD=0.640, BMI=19.7, secondary osteoporosis (1) FRAX(R) Version 3.08. Fracture probability calculated for an untreated patient. Fracture probability may be lower if the patient has received treatment. Previous Exams: Region Exam Age BMD T-score BMD Change BMD Change Date g/cm2 vs Baseline vs Previous Total Hip(Left) 03/02/2025 74 0.670 -2.2 0.007 (1.0%) 0.007 (1.0%) 09/12/2022 71 0.664 -2.3 *Denotes significance at 95% confidence level, LSC for Total Hip = 0.027 g/cm2 Clinical Information Provided by Patient: Has secondary osteoporosis Has used the following medications: HRT (i.e. estrogen/hormone therapy), Vitamin D, Calcium Patient maximum height was 64 Menopause Age: 44 Onset of menses at age 14 Number of children 2 Impression: The patient has low bone mass, based on the Left Total Hip T-score. The patient has an estimated ten-year risk of hip fracture of 2.5% and an estimated ten-year risk of major fracture of 10%, based on the WHO FRAX algorithm. No significant bone loss was observed. Discussion: BONE DENSITY IS LOW AT ONE OR MORE SKELETAL SITES. This patient's lowest T-score is low at one or more skeletal sites. It meets the World Health Organization's (WHO) criteria for ?low bone mass? (T-score between -1.0 and -2.5). The patient's 10-year risk of fracture as calculated by FRAX is less than the threshold where pharmacological therapy is recommended by the National Osteoporosis Foundation (NOF). However, all treatment decisions require clinical judgment and consideration of individual patient factors, including patient preferences, comorbidities, previous drug use, risk factors not captured in the FRAX model (e.g., frailty, falls, vitamin D deficiency, increased bone turnover, interval significant decline in bone density) and possible under or overestimation of fracture risk by FRAX. The patient should follow a healthful lifestyle (good nutrition with adequate calcium and vitamin D, and appropriate weight-bearing exercise). Follow-Up: Consider repeating this study in 2 to 3 years to reassess this patient's status, or sooner if there is some new clinical indication. Reported by: ROSITA on 03/02/2025 3:42:00 PM. Reviewed, dictated and finalized at location A.
--- NOTE | ~2025-03-02 | MM_ITS ---
EXAMINATION: MM screening [facility] BI w prashanth HISTORY: Screening TECHNIQUE: Craniocaudal and mediolateral oblique 3-D tomosynthesis images were obtained and synthetic 2-D images were generated. CAD analysis was submitted and interpreted. COMPARISON: Comparison to multiple prior studies sequentially, with oldest reviewed study dated 10/04/2011. BREAST PARENCHYMAL COMPOSITION: The breasts are heterogeneously dense, which may obscure small masses. FINDINGS: There is no evidence of suspicious mass, calcification, or architectural distortion to suggest malignancy in either breast. IMPRESSION: 1. No mammographic evidence of malignancy. 2. Recommend routine screening mammography in one year. BI-RADS Category 1: Negative Reviewed, dictated and finalized at location B.
--- OUTSIDE RECORDS SUMMARY | 2025-03-02 15:19 | XMS_ITS | Clinical Summary ---
Author Organization [facility] [place] [address] Address [address] [place] [address] Care Team Providers Care Building Maintenance Superintendent Name Role Phone Laurie Joel MD Primary Care Provider Allergies No known active allergies Medications losartan (COZAAR) 25 mg tablet Take 25 mg by mouth daily 02/10/2021 Active metoprolol XL (TOPROL-XL) 25 mg extended release tablet Take 25 mg by mouth daily 07/06/2022 Active aspirin 325 mg tablet Take 325 mg by mouth daily Active estradioL (ESTRACE) 0.01 % (0.1 mg/gram) vaginal cream Insert 2 g into the vagina daily Active triamcinolone (KENALOG) 0.1 % paste APPLY A SMALL AMOUNT OF PASTE TO DENTAL AREA(S) TWICE DAILY. USE AFTER FOOD AND/OR DRINK AND/OR ORAL HYGIENE 08/10/2022 Active Active Problems Problem Noted Date Diagnosed Date Palpitations 08/14/2022 Syncope and collapse 03/21/2021 Prominent abdominal aortic pulsation 03/21/2021 Essential hypertension 03/21/2021 Surgical History Surgery Date Site/Laterality Comments OVARIAN CYST REMOVAL APPENDECTOMY Medical History Medical History Date Comments Hypertension Cataracts, both eyes Family History Medical History Relation Name Comments Liver cancer Brother COPD Father Hyperlipidemia Mother Hypertension Mother Relation Name Status Comments Brother Alive Father (Age 77) Mother Alive Sister 1 Alive Sister 2 Alive Sister 3 Alive Social History Tobacco Use Types Packs/Day Years Used Date Smoking Tobacco: Former Smokeless Tobacco: Never Tobacco Cessation:Counseling Given: Not Answered Personal Safety Answer Date Recorded Getting School Help Needed Not on file 09/22 Comments Unknown Sex and Gender Information Value Date Recorded Sex Assigned at Not on file Legal Sex Female 9:31 AM CDT Gender Identity Not on file Sexual Orientation Not on file Obstetrics History Last Filed Vital Signs Vital Sign Reading Time Taken Comments Blood Pressure 138/80 08/14/2022 11:57 AM LABOR RELATIONS SUPERVISOR Pulse 72 07/17/2022 9:52 AM LABOR RELATIONS SUPERVISOR Temperature - - Respiratory Rate - - Oxygen Saturation 99% 07/17/2022 9:52 AM LABOR RELATIONS SUPERVISOR Inhaled Oxygen Concentration - - Weight 51.7 kg (114 lb) 07/17/2022 9:52 AM LABOR RELATIONS SUPERVISOR Height 162.6 cm (5' 4) 07/17/2022 9:52 AM LABOR RELATIONS SUPERVISOR Body Mass Index 19.57 07/17/2022 9:52 AM LABOR RELATIONS SUPERVISOR Plan of Treatment Health Maintenance Due Date Last Done Comments Breast Cancer Screening-Mammogram 1950 Colon Cancer Screening-Colonoscopy 1950 Depression Screening 1950 Fall Risk Assessment 1950 Hepatitis C Screening 1950 Osteoporosis Screening-Bone Density Scan 1950 Hepatitis B Screening 1968 DTaP/Tdap/Td Vaccine (1 - Tdap) 02/10/2011 1, 07/27/1997 Well Visit 65+ 12/05/2015 Zoster Vaccine (3 of 3) 02/20/2019 12/26/2018, 07/10 Covid-19 Vaccine (3 2023-2 5 season) 2024 09/14/2020, 08/11/2020 Influenza Vaccine (#1) 2025 0, 04/22/2019, 04/02/2018, Additional history exists Pneumococcal vaccine 65+ Completed 04/30/2019, 04/08 Insurance [facility] Care Teams Building Maintenance Superintendent Relationship Specialty Start Date End Date Laurie Joel MD PCP - General Family Practice 03/10/21
== END 2025-03-02 15:02 | disposition home or self-care (01) ==
LOC: ANHFOHIMG 15:03
PROVIDERS: PCP Family Medicine; Visit Provider Family Medicine
DX: Z12.31 Encounter for screening mammogram for malignant neoplasm of breast (principal); Z78.0 Asymptomatic menopausal state; M85.852 Other specified disorders of bone density and structure, left thigh
CPT/HCPCS: 77063; 77067; 77080

== ENCOUNTER 2025-06-16 09:38 | Outpatient (CLI) | payer OTHER, SELFPAY ==
[2025-06-16 13:07] LABS: Hematocrit 41.1 % (37.0-47.0); Hemoglobin 13.7 g/dL (12.0-15.0); Immature Granulocyte Percent A 0.2 % (0-0.5); Lymphocytes Absolute Auto 1.28 K/mm3 (0.9-3.2); Mean Corpuscular HGB Conc 33.3 g/dl (32-36); Mean Corpuscular Hemoglobin 32.8 pg (26-34); Mean Corpuscular Volume 98.3 fl (80-100); Nucleated Red Blood Cells Absolute Auto 0.000 K/mm3 (0.0-0.012); Nucleated Red Blood Cells Perc 0.0 % (0.0-0.2); Platelet Count Result 180 k/mm3 (150-375); Red Blood Count 4.18 M/mm3 (4.2-5.4); White Blood Count 5.7 K/mm3 (4.5-10.0)
[2025-06-16 13:11] LABS: Alanine Aminotransferase 18 U/L (6-35); Albumin Level 4.6 g/dL (3.5-5.1); Alkaline Phosphatase 96 U/L (38-126); Anion Gap 6 mmol/L (4-12); Aspartate Amino Transferase 54 U/L (14-36); Bilirubin,Total 1.2 mg/dL (0.2-1.3); Blood Urea Nitrogen 8 mg/dL (7-17); Calcium 10.0 mg/dL (8.4-10.2); Carbon Dioxide 29 mmol/L (22-30); Chloride 95 mmol/L (98-107); Cholesterol 237 mg/dL (0-200); Estimated Glomerular Filt Rate > 60; Glucose 99 mg/dL (65-110); Potassium 4.3 mmol/L (3.4-5.0); Sodium 130 mmol/L (137-145); Total Protein 8.3 g/dL (6.3-8.2); Triglycerides 53 mg/dL (<150)
[2025-06-16 13:45] LABS: Thyroid Stimulating Hormone Reflex 6.470 uIU/mL (0.465-4.68)
[2025-06-16 14:08] LABS: Vitamin B12 579.0 pg/mL (239-931)
[2025-06-16 15:05] LABS: HDL Direct 160 mg/dL
[2025-06-16 17:54] LABS: Free T4 Free Thyroxine Reflex 1.05 ng/dL (0.78-2.19)
[2025-06-16 19:01] LABS: Total Triiodothyronine (T3) 1.20 NG/ML (0.82-1.58)
== END 2025-06-16 09:39 | disposition home or self-care (01) ==
PROVIDERS: PCP Family Medicine; Visit Provider Family Medicine
DX: Z00.00 Encounter for general adult medical examination without abnormal findings (principal); I10 Essential (primary) hypertension; E55.9 Vitamin D deficiency, unspecified; E78.5 Hyperlipidemia, unspecified; E53.8 Deficiency of other specified B group vitamins
CPT/HCPCS: 36415; 80053; 80061; 82306; 82607; 84439; 84443; 84480; 85025